=== PATIENT | female | born 1990 | race Caucasian/White ===

== ENCOUNTER 2017-06-16 17:47 | Outpatient (CLI) | payer BC ==
[~2017-06-16] VITALS: Ht 157.5 cm; Wt 72.0 kg
[~2017-06-16 17:47] MED LIST: ASPIR 8181 M1 PO; ENDOCET 5-3251 EACH PO; IBUPROFEN800 MG PO; PRENATAL COMPL1 EACH PO
[2017-06-16 18:03] VITALS: BP 126/77
[2017-06-16 23:02] VITALS: BP 127/74
[2017-06-17 06:57] VITALS: BP 112/71
== END 2017-06-17 09:30 | disposition home or self-care (01) ==
LOC: LDRP-OP 17:47 → 2WEST 17:48 → LDRP-OP 08-04 13:40
DX: O36.8130 Decreased fetal movements, third trimester, not applicable or unspecified (principal); Z3A.37 37 weeks gestation of pregnancy
CPT/HCPCS: 59025; G0378

== ENCOUNTER 2017-06-28 06:39 | Inpatient (IN) | payer BC ==
[2017-06-28] VITALS (17 sets, daily range): BP systolic 110–140; BP diastolic 55–78
[~2017-06-28] VITALS: Ht 157.5 cm; Wt 72.6 kg
[2017-06-28 08:13] LABS: EOSINOPHIL COUNT 0.1 K/uL (0-0.3); IMMATURE GRANULOCYTE (%) 0.8 % (0.0-0.7); IMMATURE GRANULOCYTE COUNT 0.1 K/uL; INSTRUMENT ABS NEUTROPHIL CT 7.2 K/uL; LYMPHOCYTE COUNT 2.1 K/uL (1.0-2.8); MCH 32.9 PG (29.0-34.0); MCHC 34.6 G/DL (30.0-36.0); MCV 95.1 FL (83-99); MEAN PLAT.VOLUME 12.7 uM^3 (9.5-12.4); MONOCYTE (%) 8.1 % (3-12); MONOCYTE COUNT 0.8 K/uL (0-0.8); NEUTROPHIL (%) 69.7 % (45-76); NEUTROPHIL COUNT 7.2 K/uL (1.8-6.4); PLATELET COUNT 222 K/uL (156-360); RBC DIS.WIDTH-CV 13.2 % (11.8-14.6); RBC DIS.WIDTH-SD 45.8 % (39-53); RED BLOOD COUNT 3.68 M/uL (3.80-5.20); WHITE BLOOD COUNT 10.3 K/uL (4.1-10.2)
[2017-06-28 21:28] LABS: EOSINOPHIL (%) 0 % (0-5); HEMATOCRIT 29.4 % (36.0-46.0); IMMATURE GRANULOCYTE (%) 0.9 % (0.0-0.7); IMMATURE GRANULOCYTE COUNT 0.2 K/uL; INSTRUMENT ABS NEUTROPHIL CT 20.6 K/uL; LYMPHOCYTE COUNT 2.1 K/uL (1.0-2.8); MCH 33.5 PG (29.0-34.0); MCHC 35.7 G/DL (30.0-36.0); MCV 93.9 FL (83-99); MEAN PLAT.VOLUME 12.8 uM^3 (9.5-12.4); MONOCYTE (%) 6.3 % (3-12); MONOCYTE COUNT 1.5 K/uL (0-0.8); NEUTROPHIL (%) 83.9 % (45-76); NEUTROPHIL COUNT 20.6 K/uL (1.8-6.4); PLATELET COUNT 257 K/uL (156-360); RBC DIS.WIDTH-CV 13.2 % (11.8-14.6); RED BLOOD COUNT 3.13 M/uL (3.80-5.20); WHITE BLOOD COUNT 24.5 K/uL (4.1-10.2)
[2017-06-28] MEDS ORDERED: MOTRIN800 MG PO (23:36)
[2017-06-29 03:49] VITALS: BP 120/63
[2017-06-29 07:26] VITALS: BP 101/57
[2017-06-29 08:27] LABS: EOSINOPHIL (%) 0.8 % (0-5); EOSINOPHIL COUNT 0.1 K/uL (0-0.3); HEMATOCRIT 24.7 % (36.0-46.0); IMMATURE GRANULOCYTE (%) 0.5 % (0.0-0.7); IMMATURE GRANULOCYTE COUNT 0.1 K/uL; INSTRUMENT ABS NEUTROPHIL CT 8.9 K/uL; LYMPHOCYTE COUNT 2.7 K/uL (1.0-2.8); MCH 32.4 PG (29.0-34.0); MCV 95.4 FL (83-99); MEAN PLAT.VOLUME 12.7 uM^3 (9.5-12.4); MONOCYTE (%) 10.6 % (3-12); MONOCYTE COUNT 1.4 K/uL (0-0.8); NEUTROPHIL (%) 67.5 % (45-76); NEUTROPHIL COUNT 8.9 K/uL (1.8-6.4); PLATELET COUNT 210 K/uL (156-360); RBC DIS.WIDTH-CV 13.4 % (11.8-14.6); RBC DIS.WIDTH-SD 45.7 % (39-53); RED BLOOD COUNT 2.59 M/uL (3.80-5.20); WHITE BLOOD COUNT 13.2 K/uL (4.1-10.2)
[2017-06-29 12:01] VITALS: BP 109/59
[2017-06-29 15:27] VITALS: BP 111/63
[2017-06-30 07:50] VITALS: BP 128/74
== END 2017-06-30 15:10 | disposition home or self-care (01) | DRG 774 ==
LOC: LDRP-OP 06:39 → 2WEST 06:40 → LDRP-OP 08:33 → 2WEST 17:47 → LDRP-OP 08-04 09:51
PROVIDERS: Obstetrics & Gynecology
PROC: 0UQC7ZZ Repair Cervix, Via Natural or Artificial Opening (ICD-10-PCS; principal; 2017-06-28)
PROC: 10E0XZZ Delivery of Products of Conception, External Approach (ICD-10-PCS; 2017-06-28)
PROC: 10907ZC Drainage of Amniotic Fluid, Therapeutic from Products of Conception, Via Natural or Artificial Opening (ICD-10-PCS; 2017-06-28)
DX: O71.3 Obstetric laceration of cervix (principal); O72.1 Other immediate postpartum hemorrhage; D62 Acute posthemorrhagic anemia; O70.0 First degree perineal laceration during delivery; O99.02 Anemia complicating childbirth; O41.00X0 Oligohydramnios, unspecified trimester, not applicable or unspecified; O99.824 Streptococcus B carrier state complicating childbirth; O99.344 Other mental disorders complicating childbirth; F41.9 Anxiety disorder, unspecified; O99.52 Diseases of the respiratory system complicating childbirth; J45.990 Exercise induced bronchospasm; O99.62 Diseases of the digestive system complicating childbirth; K21.9 Gastro-esophageal reflux disease without esophagitis; O99.354 Diseases of the nervous system complicating childbirth; G43.909 Migraine, unspecified, not intractable, without status migrainosus; E28.2 Polycystic ovarian syndrome; Q21.1 Atrial septal defect; Z79.82 Long term (current) use of aspirin; Z3A.39 39 weeks gestation of pregnancy; Z37.0 Single live birth
CPT/HCPCS: 85025; 85025 91; 86850; 86900; 86901; J1170; J2175; J2405; J2540; J7120